=== PATIENT | male | born 1980 | race Hispanic/Latino ===

== ENCOUNTER 2021-08-19 12:50 | Emergency (ER) | payer OTHER ==
[2021-08-19] MEDS ORDERED: LIDOCAINE 1% MPF 5 ML VIAL ONE (13:40)
[2021-08-19] MEDS ORDERED: TETANUS & DIPHTHERIA TOX,ADULT 0.5 ML VIAL ONE (13:40)
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
[2021-08-19 15:25] VITALS: TEMP 97.8
[2021-08-19 15:26] VITALS: BP 137/98; O2SAT 99
[2021-08-19] MEDS ORDERED: CEFAZOLIN SODIUM 1 GM/VIAL ONE (15:28)
== END 2021-08-19 15:18 | disposition home or self-care (01) ==
LOC: ER 12:50
PROC: 0JQ10ZZ Repair Face Subcutaneous Tissue and Fascia, Open Approach (ICD-10-PCS; principal; 2021-08-19)
DX: S01.81XA Laceration without foreign body of other part of head, initial encounter (principal); Y09 Assault by unspecified means; I10 Essential (primary) hypertension; Z23 Encounter for immunization
CPT/HCPCS: 70450; 72125; 90471; 90714; 96372; 99284; 12013; J0690